=== PATIENT | female | born 1955 | race Caucasian/White ===

== ENCOUNTER 2021-03-22 16:22 | Emergency (ER) | payer MEDICARE, OTHER ==
[~2021-03-22] VITALS: Ht 157.5 cm; Wt 81.8 kg
[2021-03-22] MEDS ORDERED: HYDROcodone/APAP 5/325MG 1 TAB TABLET PO ONE (16:45)
--- NOTE | 2021-03-22 16:49 | RAD ---
EXAM: XR LT WRIST 3VIEWS 03/22/2021 4:34 PM CLINICAL INDICATION: Fall COMPARISON: Left hand radiograph 10/25/2017 TECHNIQUE: 3 views of the left wrist FINDINGS: There is a dorsally angulated distal radial metaphyseal fracture. No intra-articular exten erinn. Nondisplaced ulnar styloid fracture. Old fifth metacarpal neck fracture. There is severe degene rative joint disease of the first CMC joint. Mild soft tissue swelling. IMPRESSION: 1. Dorsally angulated distal radial metaphyseal fracture. 2. Nondisplaced ulnar styloid fracture. Electronically signed by: Beatrice Davis MD (03/22/2021 4:47 PM) [id number]
[2021-03-22] MEDS ORDERED: ETOMIDATE 40 MG/20 ML VIAL. INJ ONE (17:15)
--- NOTE | 2021-03-22 18:34 | PHYS DOC ---
Past History Past Medical History: No Pertinent History (MAXI NUR DO) Past Surgical History: , Hysterectomy, Knee Replacement (MELVI KASPER APRN) General Adult EDM: Chief Complaint: WRIST PAIN HPI: HPI: Patient is a 65-year-old female who presents to the emergency department for left wrist pain. Patient reports that she was stepping back in this lost her balance and fell backwards and caught herself with her left arm. She rates her pain 8 out of 10. She reports swelling and ecchymosis to her wrist. She denies any decreased range of motion of her fingers or decreased sensation. (MELVI KASPER APRN) Review of Systems: Review of Systems: Musculoskeletal: See HPI Integument: See HPI Neurologic: See HPI (MELVI KASPER APRN) Current Medications: Current Meds: Current Medications Medications (Trade) Dose Ordered Sig/Neftali Start Time Stop Time Status Last Admin Dose Admin Acetaminophen/ Hydrocodone Bitart (Lortab 5/325) 1 tab 1X ONCE 03/22/21 16:45 03/22/21 16:46 DC 03/22/21 16:41 1 TAB Etomidate (Amidate) 10 mg 1X ONCE 03/22/21 17:15 03/22/21 17:16 DC 03/22/21 18:28 10 MG Fentanyl Citrate (Fentanyl 2ml Vial) 100 mcg 1X ONCE 03/22/21 17:15 03/22/21 17:16 DC 03/22/21 18:26 100 MCG (MELVI KASPER APRN) Allergies: Allergies: Allergies Coded Allergies Type Severity Reaction Last Updated Verified No Known Drug Allergies 03/22/21 No (MELVI KASPER APRN) Physical Exam: PE: Constitutional: Well developed, well nourished, no acute distress, non-toxic appearance. [] HENT: Normocephalic, atraumatic, bilateral external ears normal, oropharynx moist, no oral exudates, nose normal. [] Eyes: PERRL, EOMI, conjunctiva normal, no discharge. [] Neck: Normal range of motion, no stridor Cardiovascular: Normal peripheral perfusion Lungs & Thorax: Normal work of breathing, no tachypnea Abdomen: Soft Skin: Warm, dry, no erythema, no rash. [] Back: No tenderness, normal range of motion Extremities: No tenderness, no cyanosis, no clubbing, ROM intact, no edema. [] Left wrist: Obvious deformity noted, ecchymosis noted to dorsal aspect of wrist, patient has no pain with palpation of hands/fingers/elbow/shoulder, neuro intact Neurologic: Alert and oriented X 3, normal motor function, normal sensory function, no focal deficits noted. [] Psychologic: Affect normal, judgement normal, mood normal. [] (MELVI KASPER APRN) PE: Constitutional: Well developed, well nourished, no acute distress, non-toxic appearance HENT: Normocephalic, atraumatic Eyes: Conjunctiva normal, no discharge Neck: Normal range of motion, supple Lungs & Thorax: No respiratory distress, equal chest rise and fall Skin: Warm, dry, no erythema, left wrist ecchymosis primarily overlying lateral distal radius Extremities: Left distal radius tenderness and deformity, radial pulse +2, mild edema Neurologic: Alert and oriented X 3, no focal deficits noted Psychologic: Affect normal, judgment normal (MAXI NUR DO) Current Patient Data: Vital Signs: Vital Signs Date Time Temp Pulse Resp B/P (MAP) Pulse Ox O2 Delivery O2 Flow Rate FiO2 03/22/21 18:26 18 96 2.0 (MELVI KASPER APRN) EKG: EKG: [] (MELVI KASPER APRN) Radiology/Procedures: Radiology/Procedures: []PROCEDURE: WRIST 3V LEFT EXAM: XR LT WRIST 3VIEWS 03/22/2021 4:34 PM CLINICAL INDICATION: Fall COMPARISON: Left hand radiograph 10/25/2017 TECHNIQUE: 3 views of the left wrist FINDINGS: There is a dorsally angulated distal radial metaphyseal fracture. No intra-articular extension. Nondisplaced ulnar styloid fracture. Old fifth met acarpal neck fracture. There is severe degenerative joint disease of the first CMC joint. Mild soft tissue swelling. IMPRESSION: 1. Dorsally angulated distal radial metaphyseal fracture. 2. Nondisplaced ulnar styloid fracture. Electronically signed by: Beatrice Davis MD (03/22/2021 4:47 PM) [id number] DICTATED AND SIGNED BY: BEATRICE DAVIS MD DATE: 03/22/21 1645 CC: IRIS RUSSO MD; MELVI KASPER APRN; MAXI NUR DO ~MTH0 0 (MELVI KASPER APRN) Radiology/Procedures: PROCEDURE: WRIST 3V LEFT Left wrist x-rays 2 views HISTORY: Post reduction left wrist fracture COMPARISON: X-rays March 22, 2021 FINDINGS: External splinting decreases bony detail. Nondisplaced acute traumatic fracture at the base of the ulna styloid seen to better detail on the prior study. There is an acute traumatic distal radius metaphysis fracture with improved anatomic alignment since the prior exam with some persistent dorsal angulation and distraction remaining, intra-articular involvement of this radial fracture at the wrist is not excluded. 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 Carpal bones intact. IMPRESSION: Reduction of the distal radius and ulnar fractures as described above. Electronically signed by: Esa Sinha MD (03/22/2021 6:57 PM) [facility] (MAXI NUR DO) Heart Score: C/O Chest Pain: N/A Risk Factors: Risk Factors: DM, Current or recent (<one month) smoker, HTN, HLP, family history of CAD, obesity. Risk Scores: Score 0 - 3: 2.5% MACE over next 6 weeks - Discharge Home Score 4 - 6: 20.3% MACE over next 6 weeks - Admit for Clinical Observation Score 7 - 10: 72.7% MACE over next 6 weeks - Early Invasive Strategies (MEVLI KASPER APRN) Course & Med Decision Making: Course & Med Decision Making Pertinent Labs and Imaging studies reviewed. (See chart for details) Patient presents to the emergency department for left wrist pain. Patient does have a angulated radial fracture and an ulnar styloid fracture that is not displaced. A conscious sedation was performed by Dr. Nur for reduction of fracture. Patient tolerated procedure. Patient recovered following moderate sedation. Wrist was placed in a splint. Patient is neurovascularly intact Postreduction film shows improvement in alignment. Patient educated on splint care and was given orthopedic follow-up. She will be discharged home with pain medication. I discussed with patient all findings and diagnostic testing as well as the need to follow-up with PCP for further evaluation and treatment or return to the ER if any new or worsening symptoms. Strict return precautions we re also discussed at length. Patient voiced understanding and agreement with the plan. Patient is hemodynamically stable at the time of disposition. (MELVI KASPER APRN) Dragon Disclaimer: Lexie Disclaimer: This electronic medical record was generated, in whole or in part, using a voice recognition dictation system. (MELVI KASPER APRN) Departure Departure: Impression: Primary Impression: Radial fracture Qualified Codes: S52.592A - Other fractures of lower end of left radius, initial encounter for closed fracture Additional Impression: Ulna styloid fracture, closed Qualified Codes: S52.615A - Nondisplaced fracture of left ulna styloid process, initial encounter for closed fracture Disposition: HOME / SELF CARE / HOMELESS Condition: GOOD Referrals: IRIS RUSSO MD (PCP) MARITZA TAI II, MD Patient Instructions: Radial Fracture, Sedation, Moderate, Adult Additional Instructions: You are seen in the ER today for a fracture or broken bone. You had a splint placed to help with pain and healing. You will need to follow-up with the orthopedic doctors in the orthopedic clinic as soon as possible. Please see attached information regarding follow-up physician. You should perform range of motion exercises to prevent stiffness of your joints. Splints help with the pain and can promote healing but immobility can cause chronic pain over time. Please refer to these attached instructions regarding range of motion exercises. Keep the splint clean and dry avoid getting it wet. If the splint gets wet you will need to have it replaced. You should use ice and elevation to help with the swelling and pain. For the first 24 hours apply ice 20 minutes on 20 minutes off 4 times per day. Ensure that ice is in a plastic bag as to not get the splint wet. You may take NSAID medications (Tylenol, ibuprofen, naproxen) to help with the pain. Please return to the emergency department if you develop any of the following symptoms: Increasing pain that does not improve with treatments. New numbness or tingling Warmth, redness, skin discoloration, skin breakdown, drainage from under splint or near splinted area. Increasing inability to move your extremity or digits. Foul odor coming from splint Fevers or chills Nausea or vomiting Persistent lightheadedness We would be happy to see you for any other concerning symptoms regarding your splinted extremity. 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 H&P ON CHART: Yes (MAXI NUR DO) STATUS PREG STATUS ASSESSED: N/A (MAXI NUR DO) MEDS/ALLERGIES REVIEWED Meds/Allergies Reviewed Medications and Allergies including time and route of recently administered narcotics and sedatives. MEDS/ALLERGIES REVIEWED: Yes (MAXI NUR DO) ASA RATING ASA RATING: II (MAXI NUR DO) AIRWAY ASSESSMENT Airway Assessment Airway patency, oral function limitations, presence of caps, crowns, dentures, partials, and ability to extend neck assessed. AIRWAY ASSESSMENT: Yes (MAXI NUR DO) MALLAMPATI SCORE MALLAMPATI SCORE: III (MAXI NUR DO) PRE-SEDATION ASSESSMENT PRE-SEDATION PHYSICAL: Yes (MAXI NUR DO) Splinting Splinting : Location: Left wrist Hand-Made Type: orthoglass Splint: sugar-tong Pre-Proc Neuro Vasc Exam: normal Post-Proc Neuro Vasc Exam: normal, unchanged from pre-exam (MAXI NUR DO) Additional Procedures Progress Fracture reduction under Moderate Sedation:- left wrist Written consent obtained. Time out performed. Hand hygiene utilized. Sedation performed with administration of 10 mg of etomidate and 100 mcg of fentanyl. Patient with adequate sedation. Manual manipulation with traction/countertraction performed to distal left wrist with interval improved gross alignment. Sugar tong Ortho-Glass splint applied. X-ray obtained with improved alignment. Cap refill continues to be less than 2 seconds. Patient monitored until clinically sober. Patient tolerated procedure well and without difficulty. (MAXI NUR DO) Attending Signature Attending Signature I have personally interviewed and examined the patient. All charts, labs, and imaging studies were reviewed. I agree with the PA/SKIN FITTER's findings, exam, and plan. (MAXI NUR DO) MELVI KASPER Valentine [place] Mar 22, 2021 18:34 MAXI NUR DO Mar 22, 2021 21:50
[2021-03-22] MEDS ORDERED: HYDR-2155 PO (18:53)
[2021-03-22 18:58] VITALS: BP 156/94
--- NOTE | 2021-03-22 19:00 | RAD ---
Left wrist x-rays 2 views HISTORY: Post reduction left wrist fracture COMPARISON: X-rays March 22, 2021 FINDINGS: External splinting decreases bony detail. Nondisplaced acute traumatic fracture at the base of the ulna styloid seen to better detail on the prior study. There is an acute traumatic distal rad ius metaphysis fracture with improved anatomic alignment since the prior exam with some persistent do rsal angulation and distraction remaining, intra-articular involvement of this radial fracture at the wrist is not excluded. 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 Carpal bones intact . IMPRESSION: Reduction of the distal radius and ulnar fractures as described above. Electronically signed by: Esa Sinha MD (03/22/2021 6:57 PM) [facility]
== END 2021-03-22 19:14 | disposition home or self-care (01) ==
LOC: ER 16:22
DX: S52.502A Unspecified fracture of the lower end of left radius, initial encounter for closed fracture (principal); S52.612A Displaced fracture of left ulna styloid process, initial encounter for closed fracture; W18.39XA Other fall on same level, initial encounter; Y93.89 Activity, other specified; Y92.89 Other specified places as the place of occurrence of the external cause; Y99.8 Other external cause status
CPT/HCPCS: 25605; 73110; 96374; 99285; J3010